=== PATIENT | male | born 1980 | race Asian ===

== ENCOUNTER 2024-12-31 05:04 | Emergency (ER) | payer OTHER, SELFPAY ==
[2024-12-31] VITALS (60 sets, daily range): BP systolic 95–150; BP diastolic 52–86; PULSE 68–92; RESP 12–36; TEMP 36.5; O2SAT 95–99
--- NOTE | 2024-12-31 05:04 | EKG_ITS ---
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
--- NOTE | 2024-12-31 05:05 | ED.GENADULT ---
HPI - General Adult <Nba Arce MD - Last Filed: 12/31/24 16:10> General Chief complaint: Toxicology Problem Stated complaint: Overdose Time Seen by Provider: 12/31/24 05:10 History of Present Illness HPI narrative: 44-year-old male had alleged non accidental ingestion of multiple medications 4:00 a.m. after calling his telling her hat he had taken all of his medications, law enforcement felt patient had no pulse and initiated CPR, for about 30 seconds with subsequent responsiveness of the patient, Narcan intranasal x4 doses given by law enforcement, low blood pressure initially by EMS, given 500 cc bolus during EMS transport, systolic blood pressure 80s increased to 120 on arrival. Speaking and conversant on arrival. From available bottles found at scene. Tylenol rapid release 500 mg tablets, supply 290 tablets, only 1 tablet left in bottle, possible up to 289 tablets. Prazosin 1 mg prescription filled 12/10/2024, 30 tablets, 2 were left, possible ingestion up to 28 tablets, up to 20 tablets less if patient has been taking daily medication. Prazosin 2 mg bottle, 30 tablets supply filled 12/25/2024, 23 tablets left, possible 5 tablet ingestion. Loratadine 10 mg tablets, 365 tablets supply, 3 tablets left. Xyzal 5 mg tablets, 55 tablets supply, 2 tablets left. Lamotrigine 25 mg, filled 12/25/2024, 60 tablets supply, was empty. Also bottle of Bactrim antibiotic was empty, but was Rx from August 2024. Related Data Allergies Allergy/AdvReac Type Severity Reaction Status Date / Time No Known Drug Allergies Allergy Verified 12/31/24 06:00 Exam <Nba Arce MD - Last Filed: 12/31/24 16:10> Narrative Exam Narrative: GENERAL: Well-developed patient, soft but clear speech. HEAD: Atraumatic. Normocephalic. EYES: Pupils equal round and reactive. No scleral icterus. No injection or drainage. ENT: Nose without bleeding, purulent drainage. Throat without erythema, tonsillar hypertrophy or exudate. Airway patent. NECK: Trachea midline. Non tender CARDIOVASCULAR: Regular rate and rhythm without murmurs, gallops, or rubs. RESPIRATORY: Clear to auscultation. Breath sounds equal bilaterally. No wheezes, rales, or rhonchi. GASTROINTESTINAL: Abdomen soft, non-tender, nondistended. EXTREMITIES: No edema or joint tenderness. BACK: Nontender without deformity or crepitance. No flank tenderness. NEURO: AOx3. Motor functions grossly nonfocal. SKIN: No rash or erythema of visible areas Initial Vital Signs Initial Vital Signs: Vital Signs Temperature 97.7 F 12/31/24 05:04 Pulse Rate 82 12/31/24 05:04 Respiratory Rate 22 12/31/24 05:04 Blood Pressure 119/71 12/31/24 05:04 Pulse Oximetry 97 12/31/24 05:04 Oxygen Delivery Method Room Air 12/31/24 05:04 <Nazia Haile MD - Last Filed: 12/31/24 13:27> Initial Vital Signs Initial Vital Signs: Vital Signs Temperature 97.7 F 12/31/24 05:04 Pulse Rate 82 12/31/24 05:04 Respiratory Rate 22 12/31/24 05:04 Blood Pressure 119/71 12/31/24 05:04 Pulse Oximetry 97 12/31/24 05:04 Oxygen Delivery Method Room Air 12/31/24 05:04 Course <Nba Arce MD - Last Filed: 12/31/24 16:10> Orders Ordered: ED Orders 12/31/24 07:58 Acetaminophen Stat CMP [Comprehensive Metabolic Panel] Stat 12/31/24 09:17 Urine Drug Screen, Rapid Stat 12/31/24 11:29 COVID19 -Nasal RAPID Stat Discontinued Medications Sodium Chloride (Normal Saline 0.9%) 1,000 mls @ 1,000 mls/hr IV BOLUS ONE Stop: 12/31/24 06:01 Last Infusion: 12/31/24 06:02 Dose: Infused Documented By: Admin: 12/31/24 05:15 Dose: 1,000 mls/hr Documented By: RODRICK POTASSIUM CHLORIDE IN WATER (Potassium Cl 10 Meq/100 Ml Pina) 10 meq in 100 mls @ 100 mls/hr IV Q1H CHAD Stop: 12/31/24 07:59 Last Infusion: 12/31/24 09:09 Dose: Infused Documented By: Admin: 12/31/24 07:48 Dose: 100 mls/hr Documented By: Infusion: 12/31/24 07:46 Dose: Infused Documented By: Admin: 12/31/24 06:40 Dose: 100 mls/hr Documented By: RODRICK Sodium Chloride (Normal Saline 0.9%) 1,000 mls @ 1,000 mls/hr IV BOLUS ONE Stop: 12/31/24 08:12 Last Infusion: 12/31/24 07:52 Dose: Infused Documented By: Admin: 12/31/24 07:18 Dose: 1,000 mls/hr Documented By: RODRICK Potassium Chloride (Potassium Chloride 20 Meq/15 Ml Udc) 40 meq PO NOW ONE Stop: 12/31/24 05:50 Last Admin: 12/31/24 07:46 Dose: Not Given Documented By: JAROD Vital Signs Vital signs: Vital Signs - 8 hr 12/31/24 08:00 12/31/24 08:00 12/31/24 08:10 Pulse Rate 91 H 75 Respiratory Rate 19 16 Blood Pressure 128/64 Pulse Oximetry 97 96 Oxygen Delivery Method 12/31/24 08:10 12/31/24 08:20 12/31/24 08:20 Pulse Rate 73 Respiratory Rate 19 Blood Pressure 127/57 L 121/57 L Pulse Oximetry 96 Oxygen Delivery Method 12/31/24 08:30 12/31/24 08:30 12/31/24 08:40 Pulse Rate 88 83 Respiratory Rate 21 19 Blood Pressure 119/58 L Pulse Oximetry 97 97 Oxygen Delivery Method 12/31/24 08:40 12/31/24 08:50 12/31/24 08:50 Pulse Rate 80 Respiratory Rate 17 Blood Pressure 122/62 121/64 Pulse Oximetry 97 Oxygen Delivery Method 12/31/24 09:00 12/31/24 09:00 12/31/24 09:10 Pulse Rate 81 78 Respiratory Rate 18 18 Blood Pressure 127/65 Pulse Oximetry 96 97 Oxygen Delivery Method 12/31/24 09:10 12/31/24 09:20 12/31/24 09:20 Pulse Rate 78 Respiratory Rate 21 Blood Pressure 129/69 125/65 Pulse Oximetry 97 Oxygen Delivery Method 12/31/24 09:30 12/31/24 09:30 12/31/24 09:40 Pulse Rate 76 72 Respiratory Rate 20 14 Blood Pressure 128/67 Pulse Oximetry 97 97 Oxygen Delivery Method 12/31/24 09:40 12/31/24 09:50 12/31/24 09:50 Pulse Rate 72 Respiratory Rate 14 Blood Pressure 126/65 119/62 Pulse Oximetry 97 Oxygen Delivery Method 12/31/24 10:00 12/31/24 10:00 12/31/24 10:10 Pulse Rate 71 69 Respiratory Rate 14 12 Blood Pressure 120/65 Pulse Oximetry 97 97 Oxygen Delivery Method 12/31/24 10:10 12/31/24 10:20 12/31/24 10:20 Pulse Rate 79 Respiratory Rate 14 Blood Pressure 116/61 119/67 Pulse Oximetry 97 Oxygen Delivery Method 12/31/24 10:30 12/31/24 10:30 12/31/24 10:40 Pulse Rate 88 Respiratory Rate 15 Blood Pressure 127/67 136/77 Pulse Oximetry 97 Oxygen Delivery Method 12/31/24 10:40 12/31/24 10:50 12/31/24 10:50 Pulse Rate 89 89 Respiratory Rate 15 12 Blood Pressure 126/74 Pulse Oximetry 97 97 Oxygen Delivery Method 12/31/24 11:00 12/31/24 11:00 12/31/24 11:10 Pulse Rate 92 H 88 Respiratory Rate 20 23 Blood Pressure 137/77 Pulse Oximetry 97 97 Oxygen Delivery Method 12/31/24 11:10 12/31/24 11:20 12/31/24 11:20 Pulse Rate 80 Respiratory Rate 17 Blood Pressure 137/79 129/73 Pulse Oximetry 96 Oxygen Delivery Method 12/31/24 11:30 12/31/24 11:30 12/31/24 11:40 Pulse Rate 81 79 Respiratory Rate 21 20 Blood Pressure 122/69 Pulse Oximetry 96 96 Oxygen Delivery Method 12/31/24 11:40 12/31/24 11:50 12/31/24 11:50 Pulse Rate 82 Respiratory Rate 21 Blood Pressure 119/76 133/73 Pulse Oximetry 96 Oxygen Delivery Method 12/31/24 12:00 12/31/24 12:00 12/31/24 12:10 Pulse Rate 85 83 Respiratory Rate 17 16 Blood Pressure 129/73 Pulse Oximetry 97 97 Oxygen Delivery Method 12/31/24 12:10 12/31/24 12:20 12/31/24 12:20 Pulse Rate 81 Respiratory Rate 19 Blood Pressure 133/71 137/73 Pulse Oximetry 97 Oxygen Delivery Method 12/31/24 12:30 12/31/24 12:30 12/31/24 12:40 Pulse Rate 79 Respiratory Rate 16 Blood Pressure 128/70 130/71 Pulse Oximetry 96 Oxygen Delivery Method 12/31/24 12:40 12/31/24 12:50 12/31/24 12:50 Pulse Rate 70 81 Respiratory Rate 15 17 Blood Pressure 121/65 Pulse Oximetry 96 97 Oxygen Delivery Method 12/31/24 13:00 12/31/24 13:00 12/31/24 13:10 Pulse Rate 74 79 Respiratory Rate 16 16 Blood Pressure 113/62 Pulse Oximetry 97 95 Oxygen Delivery Method 12/31/24 13:10 12/31/24 13:20 12/31/24 13:20 Pulse Rate 79 Respiratory Rate 21 Blood Pressure 131/70 127/64 Pulse Oximetry 96 Oxygen Delivery Method 12/31/24 13:30 12/31/24 13:30 12/31/24 13:40 Pulse Rate 77 74 Respiratory Rate 16 18 Blood Pressure 135/76 Pulse Oximetry 97 97 Oxygen Delivery Method 12/31/24 13:40 12/31/24 13:50 12/31/24 13:50 Pulse Rate 82 Respiratory Rate 17 Blood Pressure 138/80 150/83 H Pulse Oximetry 97 Oxygen Delivery Method 12/31/24 14:00 12/31/24 14:00 12/31/24 14:10 Pulse Rate 82 83 Respiratory Rate 19 18 Blood Pressure 128/59 L Pulse Oximetry 98 97 Oxygen Delivery Method 12/31/24 14:10 12/31/24 14:18 Pulse Rate 78 Respiratory Rate 16 Blood Pressure 133/65 122/86 Pulse Oximetry 99 Oxygen Delivery Method Room Air <Nazia Haile MD - Last Filed: 12/31/24 13:27> Orders Ordered: ED Orders 12/31/24 07:58 Acetaminophen Stat CMP [Comprehensive Metabolic Panel] Stat 12/31/24 09:17 Urine Drug Screen, Rapid Stat 12/31/24 11:29 COVID19 -Nasal RAPID Stat Discontinued Medications Sodium Chloride (Normal Saline 0.9%) 1,000 mls @ 1,000 mls/hr IV BOLUS ONE Stop: 12/31/24 06:01 Last Infusion: 12/31/24 06:02 Dose: Infused Documented By: Admin: 12/31/24 05:15 Dose: 1,000 mls/hr Documented By: RODRICK POTASSIUM CHLORIDE IN WATER (Potassium Cl 10 Meq/100 Ml Pina) 10 meq in 100 mls @ 100 mls/hr IV Q1H CHAD Stop: 12/31/24 07:59 Last Infusion: 12/31/24 09:09 Dose: Infused Documented By: Admin: 12/31/24 07:48 Dose: 100 mls/hr Documented By: Infusion: 12/31/24 07:46 Dose: Infused Documented By: Admin: 12/31/24 06:40 Dose: 100 mls/hr Documented By: RODRICK Sodium Chloride (Normal Saline 0.9%) 1,000 mls @ 1,000 mls/hr IV BOLUS ONE Stop: 12/31/24 08:12 Last Infusion: 12/31/24 07:52 Dose: Infused Documented By: Admin: 12/31/24 07:18 Dose: 1,000 mls/hr Documented By: RODRICK Potassium Chloride (Potassium Chloride 20 Meq/15 Ml Udc) 40 meq PO NOW ONE Stop: 12/31/24 05:50 Last Admin: 12/31/24 07:46 Dose: Not Given Documented By: JAROD Vital Signs Vital signs: Vital Signs - 8 hr 12/31/24 08:00 12/31/24 08:00 12/31/24 08:10 Pulse Rate 91 H 75 Respiratory Rate 19 16 Blood Pressure 128/64 Pulse Oximetry 97 96 Oxygen Delivery Method 12/31/24 08:10 12/31/24 08:20 12/31/24 08:20 Pulse Rate 73 Respiratory Rate 19 Blood Pressure 127/57 L 121/57 L Pulse Oximetry 96 Oxygen Delivery Method 12/31/24 08:30 12/31/24 08:30 12/31/24 08:40 Pulse Rate 88 83 Respiratory Rate 21 19 Blood Pressure 119/58 L Pulse Oximetry 97 97 Oxygen Delivery Method 12/31/24 08:40 12/31/24 08:50 12/31/24 08:50 Pulse Rate 80 Respiratory Rate 17 Blood Pressure 122/62 121/64 Pulse Oximetry 97 Oxygen Delivery Method 12/31/24 09:00 12/31/24 09:00 12/31/24 09:10 Pulse Rate 81 78 Respiratory Rate 18 18 Blood Pressure 127/65 Pulse Oximetry 96 97 Oxygen Delivery Method 12/31/24 09:10 12/31/24 09:20 12/31/24 09:20 Pulse Rate 78 Respiratory Rate 21 Blood Pressure 129/69 125/65 Pulse Oximetry 97 Oxygen Delivery Method 12/31/24 09:30 12/31/24 09:30 12/31/24 09:40 Pulse Rate 76 72 Respiratory Rate 20 14 Blood Pressure 128/67 Pulse Oximetry 97 97 Oxygen Delivery Method 12/31/24 09:40 12/31/24 09:50 12/31/24 09:50 Pulse Rate 72 Respiratory Rate 14 Blood Pressure 126/65 119/62 Pulse Oximetry 97 Oxygen Delivery Method 12/31/24 10:00 12/31/24 10:00 12/31/24 10:10 Pulse Rate 71 69 Respiratory Rate 14 12 Blood Pressure 120/65 Pulse Oximetry 97 97 Oxygen Delivery Method 12/31/24 10:10 12/31/24 10:20 12/31/24 10:20 Pulse Rate 79 Respiratory Rate 14 Blood Pressure 116/61 119/67 Pulse Oximetry 97 Oxygen Delivery Method 12/31/24 10:30 12/31/24 10:30 12/31/24 10:40 Pulse Rate 88 Respiratory Rate 15 Blood Pressure 127/67 136/77 Pulse Oximetry 97 Oxygen Delivery Method 12/31/24 10:40 12/31/24 10:50 12/31/24 10:50 Pulse Rate 89 89 Respiratory Rate 15 12 Blood Pressure 126/74 Pulse Oximetry 97 97 Oxygen Delivery Method 12/31/24 11:00 12/31/24 11:00 12/31/24 11:10 Pulse Rate 92 H 88 Respiratory Rate 20 23 Blood Pressure 137/77 Pulse Oximetry 97 97 Oxygen Delivery Method 12/31/24 11:10 12/31/24 11:20 12/31/24 11:20 Pulse Rate 80 Respiratory Rate 17 Blood Pressure 137/79 129/73 Pulse Oximetry 96 Oxygen Delivery Method 12/31/24 11:30 12/31/24 11:30 12/31/24 11:40 Pulse Rate 81 79 Respiratory Rate 21 20 Blood Pressure 122/69 Pulse Oximetry 96 96 Oxygen Delivery Method 12/31/24 11:40 12/31/24 11:50 12/31/24 11:50 Pulse Rate 82 Respiratory Rate 21 Blood Pressure 119/76 133/73 Pulse Oximetry 96 Oxygen Delivery Method 12/31/24 12:00 12/31/24 12:00 12/31/24 12:10 Pulse Rate 85 83 Respiratory Rate 17 16 Blood Pressure 129/73 Pulse Oximetry 97 97 Oxygen Delivery Method 12/31/24 12:10 12/31/24 12:20 12/31/24 12:20 Pulse Rate 81 Respiratory Rate 19 Blood Pressure 133/71 137/73 Pulse Oximetry 97 Oxygen Delivery Method 12/31/24 12:30 12/31/24 12:30 12/31/24 12:40 Pulse Rate 79 Respiratory Rate 16 Blood Pressure 128/70 130/71 Pulse Oximetry 96 Oxygen Delivery Method 12/31/24 12:40 12/31/24 12:50 12/31/24 12:50 Pulse Rate 70 81 Respiratory Rate 15 17 Blood Pressure 121/65 Pulse Oximetry 96 97 Oxygen Delivery Method 12/31/24 13:00 12/31/24 13:00 12/31/24 13:10 Pulse Rate 74 79 Respiratory Rate 16 16 Blood Pressure 113/62 Pulse Oximetry 97 95 Oxygen Delivery Method 12/31/24 13:10 12/31/24 13:20 12/31/24 13:20 Pulse Rate 79 Respiratory Rate 21 Blood Pressure 131/70 127/64 Pulse Oximetry 96 Oxygen Delivery Method 12/31/24 13:30 12/31/24 13:30 12/31/24 13:40 Pulse Rate 77 74 Respiratory Rate 16 18 Blood Pressure 135/76 Pulse Oximetry 97 97 Oxygen Delivery Method 12/31/24 13:40 12/31/24 13:50 12/31/24 13:50 Pulse Rate 82 Respiratory Rate 17 Blood Pressure 138/80 150/83 H Pulse Oximetry 97 Oxygen Delivery Method 12/31/24 14:00 12/31/24 14:00 12/31/24 14:10 Pulse Rate 82 83 Respiratory Rate 19 18 Blood Pressure 128/59 L Pulse Oximetry 98 97 Oxygen Delivery Method 12/31/24 14:10 12/31/24 14:18 Pulse Rate 78 Respiratory Rate 16 Blood Pressure 133/65 122/86 Pulse Oximetry 99 Oxygen Delivery Method Room Air Medical Decision Making <Nba Arce MD - Last Filed: 12/31/24 16:10> Lab Data Lab results reviewed: Yes I reviewed the patient's lab results. Lab results narrative: POC glucose 120. White blood cell count 6000, hemoglobin 13.6, platelets 240,000. Glucose 121. Normal renal function. Calcium 8.3 slight decreased, normal albumin. Serum CO2 21 with chloride 105, sodium 138, anion gap 12. Serum potassium 3.1 low. Liver functions normal. Lactate 2.0 noted. Acetaminophen measurable 27. Salicylate negative. Ethanol negative. 12/31/24 05:19 12/31/24 07:58 Labs: Lab Results 12/31/24 12/31/24 12/31/24 Range/Units 05:19 05:23 05:26 WBC 6.0 (4.5-11.0) X10^3/uL RBC 4.55 (4.5-5.9) X10^6/uL Hgb 13.6 (13.5-17.5) g/dL Hct 39.2 L (41-53) % MCV 86.1 (80-100) fL MCH 30.0 (26-34) PG MCHC 34.8 (30-36) % RDW 14.4 (11.6-14.8) % Plt Count 240 (150-400) X10^3/uL Neut % (Auto) 48.1 L (50-75) % Lymph % (Auto) 39.3 (25-40) % [place] % (Auto) 8.7 (3-14) % Eos % (Auto) 2.7 (2-4) % Baso % (Auto) 1.2 (0-2) % Neut # (Auto) 2900 (1051-1317) /uL Lymph # (Auto) 2300 (4358-4343) /uL [place] # (Auto) 500 (0-900) /uL Eos # (Auto) 200 (0-450) /uL Baso # (Auto) 100 (0-100) /uL PT 11.1 (9.4-12.5) SECONDS INR 1.0 (0.9-1.3) ABG Sample Site Right radial ABG pH Not Reportable ABG pCO2 Not Reportable ABG pO2 Not Reportable ABG HCO3 Not Reportable ABG Total CO2 Not Reportable ABG O2 Saturation Not Reportable ABG Base Excess Not Reportable Ermias Test Positive Sodium 138 (137-145) mmol/L Potassium 3.1 L (3.4-5.1) mmol/L Chloride 105 (98-107) mmol/L Carbon Dioxide 21 L (22-32) mmol/L BUN 14 (9-20) mg/dL Creatinine 0.64 L (0.66-1.25) mg/dL Estimated GFR > 60 (>60) mL/min BUN/Creatinine Ratio 21.9 (6-22) Glucose 121 H (70-99) mg/dL POC Whole Bld Glucose 120 H (70-99) mg/dL Lactate 2.0 (0.7-2.1) mmol/L Calcium 8.3 L (8.4-10.2) mg/dL Total Bilirubin 0.4 (0.2-1.3) mg/dL Conjugated Bilirubin 0.0 (0.0-0.3) md/dL Unconjugated Bilirubin 0.1 (0.0-1.1) mg/dL AST 25 (17-59) IU/L ALT 21 (<50) IU/L Alkaline Phosphatase 84 (38-126) U/L Total Protein 7.1 (6.3-8.2) g/dL Albumin 4.1 (3.5-5.0) g/dL Globulin 3.0 (1.7-4.1) g/dL Albumin/Globulin Ratio 1.4 (1.0-2.8) Salicylates < 1.0 (<20) mg/dL U Opiates 300ng/mL cut (Negative) Ur Oxycodone Screen (Negative) Urine Methadone Screen (Negative) Acetaminophen 27 (10-30) ug/mL Ur Barbiturates Screen (Negative) U Tricyclic Antidepress (Negative) Ur Phencyclidine Scrn (Negative) Ur Amphetamines Screen (Negative) U Methamphetamines Scrn (Negative) Ur MDMA Scrn (Ecstasy) (Negative) U Benzodiazepines Scrn (Negative) Urine Cocaine Screen (Negative) U Marijuana (THC) Screen (Negative) Urine pH (Normal) Urine Specific [place] (Normal) Ethyl Alcohol < 10 (<10) mg/dL Ur Creatinine (Normal) SARS-CoV-2 (PCR) (Negative) 12/31/24 12/31/24 12/31/24 Range/Units 05:31 07:58 09:17 WBC (4.5-11.0) X10^3/uL RBC (4.5-5.9) X10^6/uL Hgb (13.5-17.5) g/dL Hct (41-53) % MCV (80-100) fL MCH (26-34) PG MCHC (30-36) % RDW (11.6-14.8) % Plt Count (150-400) X10^3/uL Neut % (Auto) (50-75) % Lymph % (Auto) (25-40) % [place] % (Auto) (3-14) % Eos % (Auto) (2-4) % Baso % (Auto) (0-2) % Neut # (Auto) (1632-8674) /uL Lymph # (Auto) (7437-1825) /uL [place] # (Auto) (0-900) /uL Eos # (Auto) (0-450) /uL Baso # (Auto) (0-100) /uL PT (9.4-12.5) SECONDS INR (0.9-1.3) ABG Sample Site Not Reportable ABG pH 7.39 ABG pCO2 39.5 ABG pO2 86 ABG HCO3 24 ABG Total CO2 23 ABG O2 Saturation 97 ABG Base Excess -0.7 Ermias Test Not Reportable Sodium 137 (137-145) mmol/L Potassium 3.9 (3.4-5.1) mmol/L Chloride 107 (98-107) mmol/L Carbon Dioxide 20 L (22-32) mmol/L BUN 12 (9-20) mg/dL Creatinine 0.61 L (0.66-1.25) mg/dL Estimated GFR > 60 (>60) mL/min BUN/Creatinine Ratio 19.7 (6-22) Glucose 120 H (70-99) mg/dL POC Whole Bld Glucose (70-99) mg/dL Lactate (0.7-2.1) mmol/L Calcium 7.9 L (8.4-10.2) mg/dL Total Bilirubin 0.6 (0.2-1.3) mg/dL Conjugated Bilirubin (0.0-0.3) md/dL Unconjugated Bilirubin (0.0-1.1) mg/dL AST 30 (17-59) IU/L ALT 21 (<50) IU/L Alkaline Phosphatase 95 (38-126) U/L Total Protein 7.0 (6.3-8.2) g/dL Albumin 4.0 (3.5-5.0) g/dL Globulin 3.0 (1.7-4.1) g/dL Albumin/Globulin Ratio 1.3 (1.0-2.8) Salicylates (<20) mg/dL U Opiates 300ng/mL cut Negative (Negative) Ur Oxycodone Screen Negative (Negative) Urine Methadone Screen Negative (Negative) Acetaminophen 14 (10-30) ug/mL Ur Barbiturates Screen Negative (Negative) U Tricyclic Antidepress Negative (Negative) Ur Phencyclidine Scrn Negative (Negative) Ur Amphetamines Screen Negative (Negative) U Methamphetamines Scrn Negative (Negative) Ur MDMA Scrn (Ecstasy) Negative (Negative) U Benzodiazepines Scrn Negative (Negative) Urine Cocaine Screen Negative (Negative) U Marijuana (THC) Screen Negative (Negative) Urine pH Normal (Normal) Urine Specific [place] Normal (Normal) Ethyl Alcohol (<10) mg/dL Ur Creatinine Normal (Normal) SARS-CoV-2 (PCR) (Negative) 12/31/24 Range/Units 11:29 WBC (4.5-11.0) X10^3/uL RBC (4.5-5.9) X10^6/uL Hgb (13.5-17.5) g/dL Hct (41-53) % MCV (80-100) fL MCH (26-34) PG MCHC (30-36) % RDW (11.6-14.8) % Plt Count (150-400) X10^3/uL Neut % (Auto) (50-75) % Lymph % (Auto) (25-40) % [place] % (Auto) (3-14) % Eos % (Auto) (2-4) % Baso % (Auto) (0-2) % Neut # (Auto) (0695-4403) /uL Lymph # (Auto) (3961-0029) /uL [place] # (Auto) (0-900) /uL Eos # (Auto) (0-450) /uL Baso # (Auto) (0-100) /uL PT (9.4-12.5) SECONDS INR (0.9-1.3) ABG Sample Site ABG pH ABG pCO2 ABG pO2 ABG HCO3 ABG Total CO2 ABG O2 Saturation ABG Base Excess Ermias Test Sodium (137-145) mmol/L Potassium (3.4-5.1) mmol/L Chloride (98-107) mmol/L Carbon Dioxide (22-32) mmol/L BUN (9-20) mg/dL Creatinine (0.66-1.25) mg/dL Estimated GFR (>60) mL/min BUN/Creatinine Ratio (6-22) Glucose (70-99) mg/dL POC Whole Bld Glucose (70-99) mg/dL Lactate (0.7-2.1) mmol/L Calcium (8.4-10.2) mg/dL Total Bilirubin (0.2-1.3) mg/dL Conjugated Bilirubin (0.0-0.3) md/dL Unconjugated Bilirubin (0.0-1.1) mg/dL AST (17-59) IU/L ALT (<50) IU/L Alkaline Phosphatase (38-126) U/L Total Protein (6.3-8.2) g/dL Albumin (3.5-5.0) g/dL Globulin (1.7-4.1) g/dL Albumin/Globulin Ratio (1.0-2.8) Salicylates (<20) mg/dL U Opiates 300ng/mL cut (Negative) Ur Oxycodone Screen (Negative) Urine Methadone Screen (Negative) Acetaminophen (10-30) ug/mL Ur Barbiturates Screen (Negative) U Tricyclic Antidepress (Negative) Ur Phencyclidine Scrn (Negative) Ur Amphetamines Screen (Negative) U Methamphetamines Scrn (Negative) Ur MDMA Scrn (Ecstasy) (Negative) U Benzodiazepines Scrn (Negative) Urine Cocaine Screen (Negative) U Marijuana (THC) Screen (Negative) Urine pH (Normal) Urine Specific [place] (Normal) Ethyl Alcohol (<10) mg/dL Ur Creatinine (Normal) SARS-CoV-2 (PCR) Negative (Negative) Point of Care Testing Glucose POC 120 Point of care testing: Point of Care Testing Glucose POC 120 ECG Data Interpretation: 0525, normal sinus rhythm with rate of 84, no obvious ST segment elevation or depression changes. W[place] 202, QRS 86, QTC 439. MDM Narrative Medical decision making narrative: 44-year-old male with polysubstance non accidental ingestion possibly at 0400. Possible substances include Tylenol rapid release, prazosin, loratadine, Xyzal, lamotrigine, seems less likely old supply empty bottle Bactrim antibiotic.. Decreased responsiveness reported prior to arrival, given intranasal Narcan by law enforcement, who could not feel a pulse and reportedly performed 30 minutes of chest compressions, alert for EMS who gave IV fluids EN route for low blood pressure, systolic blood pressure 80s improved to 120 on arrival. Patient is conversant. Baseline EKG shows sinus rhythm, normal QRS and QTc ABG on room air shows pH 7.39, pCO2 39.5, PaO2 86, bicarb 23, 97% saturation, BE -0.7 0530, Poison control consulted, observe for 6-8 hours, we will repeat acetaminophen level at 8:00 a.m. which should be 4 hours from alleged time of ingestion, acetaminophen level from arrival still pending. Monitor 6-8 hours. Watch for MANAGER OF [employer] depression, seizures, QRS widening, tachycardia. Initial lab data: POC glucose 120. White blood cell count 6000, hemoglobin 13.6, platelets 240,000. Glucose 121. Normal renal function. Calcium 8.3 slight decreased, normal albumin. Serum CO2 21 with chloride 105, sodium 138, anion gap 12. Serum potassium 3.1 low. Liver functions normal. Lactate 2.0 noted. Acetaminophen measurable 27. Salicylate negative. Ethanol negative. K 3.1 low, IV/PO potassium. 0600, conversant, systolic blood pressure 114, heart rate 70s. Maintaining airway thus far. 0700, repeat acetaminophen and EKG to be done in the next hour, signed out to [facility] ED shift physician Dr Haile. 7am care assumed, patient independently examined, chart reviewed 725 BP trending down, total 1L NS given, repeat. 2nd IV started Second Tylenol dose is trending down, blood pressure is responding nicely to fluids If current clinical trend continues will recommend 6 hour observation from time of ingestion, this would be 10:00 a.m., as appropriate time to presume he is medically clear. Patient is updated. 10am medically clear 11am discussion with CREDIT RATING CHECKER 1120 CREDIT RATING CHECKER, multiple issues, stressors, anxiety re work, marriage and we will clearly benefit from inpatient care and is a good michaela voluntary admission. We will begin looking for inpatient beds. Patient drove from [facility] to [facility] to ?see one last [place] He is extraordinarily high-risk for repeat suicide attempt, if at any point he became involuntary he would need to be detained. 125 [facility]. Transport scheduled for 2pm. Pt is aware and agreeable. <Nazia Haile MD - Last Filed: 12/31/24 13:27> Lab Data Labs: Lab Results 12/31/24 12/31/24 12/31/24 Range/Units 05:19 05:23 05:26 WBC 6.0 (4.5-11.0) X10^3/uL RBC 4.55 (4.5-5.9) X10^6/uL Hgb 13.6 (13.5-17.5) g/dL Hct 39.2 L (41-53) % MCV 86.1 (80-100) fL MCH 30.0 (26-34) PG MCHC 34.8 (30-36) % RDW 14.4 (11.6-14.8) % Plt Count 240 (150-400) X10^3/uL Neut % (Auto) 48.1 L (50-75) % Lymph % (Auto) 39.3 (25-40) % [place] % (Auto) 8.7 (3-14) % Eos % (Auto) 2.7 (2-4) % Baso % (Auto) 1.2 (0-2) % Neut # (Auto) 2900 (5016-0659) /uL Lymph # (Auto) 2300 (9791-1057) /uL [place] # (Auto) 500 (0-900) /uL Eos # (Auto) 200 (0-450) /uL Baso # (Auto) 100 (0-100) /uL PT 11.1 (9.4-12.5) SECONDS INR 1.0 (0.9-1.3) ABG Sample Site Right radial ABG pH Not Reportable ABG pCO2 Not Reportable ABG pO2 Not Reportable ABG HCO3 Not Reportable ABG Total CO2 Not Reportable ABG O2 Saturation Not Reportable ABG Base Excess Not Reportable Ermias Test Positive Sodium 138 (137-145) mmol/L Potassium 3.1 L (3.4-5.1) mmol/L Chloride 105 (98-107) mmol/L Carbon Dioxide 21 L (22-32) mmol/L BUN 14 (9-20) mg/dL Creatinine 0.64 L (0.66-1.25) mg/dL Estimated GFR > 60 (>60) mL/min BUN/Creatinine Ratio 21.9 (6-22) Glucose 121 H (70-99) mg/dL POC Whole Bld Glucose 120 H (70-99) mg/dL Lactate 2.0 (0.7-2.1) mmol/L Calcium 8.3 L (8.4-10.2) mg/dL Total Bilirubin 0.4 (0.2-1.3) mg/dL Conjugated Bilirubin 0.0 (0.0-0.3) md/dL Unconjugated Bilirubin 0.1 (0.0-1.1) mg/dL AST 25 (17-59) IU/L ALT 21 (<50) IU/L Alkaline Phosphatase 84 (38-126) U/L Total Protein 7.1 (6.3-8.2) g/dL Albumin 4.1 (3.5-5.0) g/dL Globulin 3.0 (1.7-4.1) g/dL Albumin/Globulin Ratio 1.4 (1.0-2.8) Salicylates < 1.0 (<20) mg/dL U Opiates 300ng/mL cut (Negative) Ur Oxycodone Screen (Negative) Urine Methadone Screen (Negative) Acetaminophen 27 (10-30) ug/mL Ur Barbiturates Screen (Negative) U Tricyclic Antidepress (Negative) Ur Phencyclidine Scrn (Negative) Ur Amphetamines Screen (Negative) U Methamphetamines Scrn (Negative) Ur MDMA Scrn (Ecstasy) (Negative) U Benzodiazepines Scrn (Negative) Urine Cocaine Screen (Negative) U Marijuana (THC) Screen (Negative) Urine pH (Normal) Urine Specific [place] (Normal) Ethyl Alcohol < 10 (<10) mg/dL Ur Creatinine (Normal) SARS-CoV-2 (PCR) (Negative) 12/31/24 12/31/24 12/31/24 Range/Units 05:31 07:58 09:17 WBC (4.5-11.0) X10^3/uL RBC (4.5-5.9) X10^6/uL Hgb (13.5-17.5) g/dL Hct (41-53) % MCV (80-100) fL MCH (26-34) PG MCHC (30-36) % RDW (11.6-14.8) % Plt Count (150-400) X10^3/uL Neut % (Auto) (50-75) % Lymph % (Auto) (25-40) % [place] % (Auto) (3-14) % Eos % (Auto) (2-4) % Baso % (Auto) (0-2) % Neut # (Auto) (7756-4159) /uL Lymph # (Auto) (9246-4779) /uL [place] # (Auto) (0-900) /uL Eos # (Auto) (0-450) /uL Baso # (Auto) (0-100) /uL PT (9.4-12.5) SECONDS INR (0.9-1.3) ABG Sample Site Not Reportable ABG pH 7.39 ABG pCO2 39.5 ABG pO2 86 ABG HCO3 24 ABG Total CO2 23 ABG O2 Saturation 97 ABG Base Excess -0.7 Ermias Test Not Reportable Sodium 137 (137-145) mmol/L Potassium 3.9 (3.4-5.1) mmol/L Chloride 107 (98-107) mmol/L Carbon Dioxide 20 L (22-32) mmol/L BUN 12 (9-20) mg/dL Creatinine 0.61 L (0.66-1.25) mg/dL Estimated GFR > 60 (>60) mL/min BUN/Creatinine Ratio 19.7 (6-22) Glucose 120 H (70-99) mg/dL POC Whole Bld Glucose (70-99) mg/dL Lactate (0.7-2.1) mmol/L Calcium 7.9 L (8.4-10.2) mg/dL Total Bilirubin 0.6 (0.2-1.3) mg/dL Conjugated Bilirubin (0.0-0.3) md/dL Unconjugated Bilirubin (0.0-1.1) mg/dL AST 30 (17-59) IU/L ALT 21 (<50) IU/L Alkaline Phosphatase 95 (38-126) U/L Total Protein 7.0 (6.3-8.2) g/dL Albumin 4.0 (3.5-5.0) g/dL Globulin 3.0 (1.7-4.1) g/dL Albumin/Globulin Ratio 1.3 (1.0-2.8) Salicylates (<20) mg/dL U Opiates 300ng/mL cut Negative (Negative) Ur Oxycodone Screen Negative (Negative) Urine Methadone Screen Negative (Negative) Acetaminophen 14 (10-30) ug/mL Ur Barbiturates Screen Negative (Negative) U Tricyclic Antidepress Negative (Negative) Ur Phencyclidine Scrn Negative (Negative) Ur Amphetamines Screen Negative (Negative) U Methamphetamines Scrn Negative (Negative) Ur MDMA Scrn (Ecstasy) Negative (Negative) U Benzodiazepines Scrn Negative (Negative) Urine Cocaine Screen Negative (Negative) U Marijuana (THC) Screen Negative (Negative) Urine pH Normal (Normal) Urine Specific [place] Normal (Normal) Ethyl Alcohol (<10) mg/dL Ur Creatinine Normal (Normal) SARS-CoV-2 (PCR) (Negative) 12/31/24 Range/Units 11:29 WBC (4.5-11.0) X10^3/uL RBC (4.5-5.9) X10^6/uL Hgb (13.5-17.5) g/dL Hct (41-53) % MCV (80-100) fL MCH (26-34) PG MCHC (30-36) % RDW (11.6-14.8) % Plt Count (150-400) X10^3/uL Neut % (Auto) (50-75) % Lymph % (Auto) (25-40) % [place] % (Auto) (3-14) % Eos % (Auto) (2-4) % Baso % (Auto) (0-2) % Neut # (Auto) (5172-1011) /uL Lymph # (Auto) (8026-7545) /uL [place] # (Auto) (0-900) /uL Eos # (Auto) (0-450) /uL Baso # (Auto) (0-100) /uL PT (9.4-12.5) SECONDS INR (0.9-1.3) ABG Sample Site ABG pH ABG pCO2 ABG pO2 ABG HCO3 ABG Total CO2 ABG O2 Saturation ABG Base Excess Ermias Test Sodium (137-145) mmol/L Potassium (3.4-5.1) mmol/L Chloride (98-107) mmol/L Carbon Dioxide (22-32) mmol/L BUN (9-20) mg/dL Creatinine (0.66-1.25) mg/dL Estimated GFR (>60) mL/min BUN/Creatinine Ratio (6-22) Glucose (70-99) mg/dL POC Whole Bld Glucose (70-99) mg/dL Lactate (0.7-2.1) mmol/L Calcium (8.4-10.2) mg/dL Total Bilirubin (0.2-1.3) mg/dL Conjugated Bilirubin (0.0-0.3) md/dL Unconjugated Bilirubin (0.0-1.1) mg/dL AST (17-59) IU/L ALT (<50) IU/L Alkaline Phosphatase (38-126) U/L Total Protein (6.3-8.2) g/dL Albumin (3.5-5.0) g/dL Globulin (1.7-4.1) g/dL Albumin/Globulin Ratio (1.0-2.8) Salicylates (<20) mg/dL U Opiates 300ng/mL cut (Negative) Ur Oxycodone Screen (Negative) Urine Methadone Screen (Negative) Acetaminophen (10-30) ug/mL Ur Barbiturates Screen (Negative) U Tricyclic Antidepress (Negative) Ur Phencyclidine Scrn (Negative) Ur Amphetamines Screen (Negative) U Methamphetamines Scrn (Negative) Ur MDMA Scrn (Ecstasy) (Negative) U Benzodiazepines Scrn (Negative) Urine Cocaine Screen (Negative) U Marijuana (THC) Screen (Negative) Urine pH (Normal) Urine Specific [place] (Normal) Ethyl Alcohol (<10) mg/dL Ur Creatinine (Normal) SARS-CoV-2 (PCR) Negative (Negative) Point of Care Testing Glucose POC 120 Point of care testing: Point of Care Testing Glucose POC 120 MDM Narrative Medical decision making narrative: 44-year-old male with polysubstance non accidental ingestion possibly at 0400. Possible substances include Tylenol rapid release, prazosin, loratadine, Xyzal, lamotrigine, seems less likely old supply empty bottle Bactrim antibiotic.. Decreased responsiveness reported prior to arrival, given intranasal Narcan by law enforcement, who could not feel a pulse and reportedly performed 30 minutes of chest compressions, alert for EMS who gave IV fluids EN route for low blood pressure, systolic blood pressure 80s improved to 120 on arrival. Patient is conversant. Baseline EKG shows sinus rhythm, normal QRS and QTc ABG on room air shows pH 7.39, pCO2 39.5, PaO2 86, bicarb 23, 97% saturation, BE -0.7 0530, Poison control consulted, observe for 6-8 hours, we will repeat acetaminophen level at 8:00 a.m. which should be 4 hours from alleged time of ingestion, acetaminophen level from arrival still pending. Monitor 6-8 hours. Watch for MANAGER OF HEALTH depression, seizures, QRS widening, tachycardia. Initial lab data: POC glucose 120. White blood cell count 6000, hemoglobin 13.6, platelets 240,000. Glucose 121. Normal renal function. Calcium 8.3 slight decreased, normal albumin. Serum CO2 21 with chloride 105, sodium 138, anion gap 12. Serum potassium 3.1 low. Liver functions normal. Lactate 2.0 noted. Acetaminophen measurable 27. Salicylate negative. Ethanol negative. 0600, conversant, systolic blood pressure 114, heart rate 70s. Maintaining airway thus far. 0700, repeat acetaminophen and EKG to be done in the next hour, [facility] Dr Haile. 7am care assumed, patient independently examined, chart reviewed 725 BP trending down, total 1L NS given, repeat. 2nd IV started Second Tylenol dose is trending down, blood pressure is responding nicely to fluids If current clinical trend continues will recommend 6 hour observation from time of ingestion, this would be 10:00 a.m., as appropriate time to presume he is medically clear. Patient is updated. 10am medically clear 11am discussion with CREDIT RATING CHECKER 1120 CREDIT RATING CHECKER, multiple issues, stressors, anxiety re work, marriage and we will clearly benefit from inpatient care and is a good michaela voluntary admission. We will begin looking for inpatient beds. Patient drove from [facility] to [facility] [place] ?[place] one last [place] He is extraordinarily high-risk for repeat suicide attempt, if at any point he became involuntary he would need to be detained. 125 [facility]. Transport scheduled for 2pm. Pt is aware and agreeable. Discharge Plan Departure Patient Disposition: Xfer Psychiatric Hosp Clinical Impression: Suicidal ideation, Suicide attempt by drug ingestion, Depression
[2024-12-31] MEDS: SODIUM CHLORIDE 0.9% 1,000 ML 1000 ML IV ×2 (05:15→07:18)
[2024-12-31 05:29] LABS: Allen Test for ABG Passed? Positive; Blood Gas Collection Site Right Radial
[2024-12-31 05:29] LABS: Add Manual Diff / Slide Review NO; Hematocrit 39.2 % (41-53); Hemoglobin 13.6 g/dL (13.5-17.5); Lymphocytes Absolute Auto 2300 /uL (1100-4500); Mean Corpuscular HGB Conc 34.8 % (30-36); Mean Corpuscular Hemoglobin 30.0 PG (26-34); Mean Corpuscular Volume 86.1 fL (80-100); Platelet Count 240 X10^3/uL (150-400)
[2024-12-31 05:36] LABS: HCO3 ABG 24 mmol/L (23-27); Oxygen Saturation ABG 97 % (95-100); PCO2 ABG 39.5 mmHg (35-45); PO2 ABG 86 mmHg (80-100); TCO2 ABG 23 mmol/L (23-27)
--- NOTE | 2024-12-31 05:36 | PC.NURSE ---
Talked to Dalia at poison control states to check tylenol levels. states prazosin can cause reflex tachycardia and hypotension and to treat with fluids and pressors. Lamotrigine can cause electric welder depression, seizures and qrs prolongations. states the allergy meds can cause upset stomach
[2024-12-31 05:45] LABS: Acetaminophen 27 ug/mL (10-30); Alanine Aminotransferase 21 IU/L (<50); Albumin 4.1 g/dL (3.5-5.0); Albumin Globulin Ratio 1.4 (1.0-2.8); Alkaline Phosphatase 84 U/L (38-126); Blood Urea Nitrogen 14 mg/dL (9-20); Calcium 8.3 mg/dL (8.4-10.2); Carbon Dioxide 21 mmol/L (22-32); Chloride 105 mmol/L (98-107); Estimated Glomerular Filt Rate > 60 mL/min (>60); Ethanol (ETOH) < 10 mg/dL (<10); Globulin 3.0 g/dL (1.7-4.1); Glucose 121 mg/dL (70-99); HEMOLYSIS 16 (0-50); Lactate (Lactic Acid) 2.0 mmol/L (0.7-2.1); Potassium 3.1 mmol/L (3.4-5.1); Salicylate < 1.0 mg/dL (<20); Sodium 138 mmol/L (137-145); Total Protein 7.1 g/dL (6.3-8.2)
[2024-12-31 05:49] LABS: INR 1.0 (0.9-1.3); Prothrombin Time 11.1 SECONDS (9.4-12.5)
--- NOTE | 2024-12-31 05:50 | EKG_ITS ---
[facility] [address], [place] [address] Test Date: 2024-12-31 Pat Name: Raymond Moore Department: [facility] Room: Gender: Male Holter Technician: : 1980 Requested By: Order Number: [id number] Reading MD: Ermias Rust Measurements Intervals [place] Rate: 84 P: 53 TX: 188 QRS: 57 QRSD: 80 T: 27 QT: 362 QTc: 427 Interpretive Statements Normal sinus rhythm Electronically Signed On 01-03-2025 9:20:35 PDT by Ermias Rust
[2024-12-31] MEDS: POTASSIUM CHLORIDE IN WATER 10 MEQ/100 ML PIGGYBACK 100 MEQ IV ×2 (06:40→07:48)
--- NOTE | 2024-12-31 07:30 | PC.NURSE ---
Pt AxOx4 at this time, arousable to verbal stimulus. Pt is very drowsy, mumbling responses but is aware of what is going on and is able to follow commands well. VS stable, respirations regular and unlabored.
--- NOTE | 2024-12-31 07:34 | PC.NURSE ---
pt was incontinent and a bed change was done @0725.
[2024-12-31 08:21] LABS: Acetaminophen 14 ug/mL (10-30)
[2024-12-31 08:22] LABS: Alanine Aminotransferase 21 IU/L (<50); Albumin 4.0 g/dL (3.5-5.0); Albumin Globulin Ratio 1.3 (1.0-2.8); Alkaline Phosphatase 95 U/L (38-126); Blood Urea Nitrogen 12 mg/dL (9-20); Calcium 7.9 mg/dL (8.4-10.2); Carbon Dioxide 20 mmol/L (22-32); Chloride 107 mmol/L (98-107); Estimated Glomerular Filt Rate > 60 mL/min (>60); Globulin 3.0 g/dL (1.7-4.1); Glucose 120 mg/dL (70-99); HEMOLYSIS < 15 (0-50); Potassium 3.9 mmol/L (3.4-5.1); Sodium 137 mmol/L (137-145); Total Protein 7.0 g/dL (6.3-8.2)
[2024-12-31 09:32] LABS: UR Morphine/Opiate cutoff 300 Negative (Negative); Ur Specific Gravity Normal (Normal); Urine MDMA Negative (Negative); Urine Methamphetamines Negative (Negative); Urine Tetrahydrocannabinol Negative (Negative); Urine Tricyclic Antidepressant Negative (Negative)
--- NOTE | 2024-12-31 12:00 | CM.SWNOTE ---
ED BACK OFFICE MEDICAL ASSISTANT Assessment BACK OFFICE MEDICAL ASSISTANT/Head Swamper Assessment Start date 12/31/24 Visit Start Time 10:10 End date 12/31/24 Visit End Time 11:20 Total time Care 1 hour 20 minutes Management spent on patient visit-in minutes Presenting Problem Patient presents to ED via EMS after intentional overdose of several medications in attempt to kill self early this morning. Patient drove from his home in [facility] to one of his favorite places at [place] to see one last sunset. Patient's former called 911 out of concern for patient. Patient was found unresponsive and required 4 doses of narcan. Precipitating Event( Patient endorses several life stressors regarding his s) marriage, work life, cultural expectations as an man and not sharing these stressors with anyone. Patient discusses in great detail how these stressors have compounded over the years and more intensely in that last year. Patient states he has been experiencing suicidal ideation in the last few months. 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 Patient endorses issues of sexual disfunction which has impacted his marriage. Patient states he was unable to communicate his stressors with his and endorses that his marriage of 13 years recently ended in divorce. Patient states that he gave up custody of his son out of fear that he could not be a good enough father. Patient endorses feelings of isolation and states he has experienced difficulty maintaining friendships and states that a few of his friends . Patient Strengths Patient is intellectual, insightful and seeking help, patient has a food and beverage service manager he has been seeing. Current Behavioral Patient's psychiatrist is TY Gamez at [facility] Provider(s) Therapy (Ph. [phone]) Include Facility, Provider, Ph. # Psych. Hx Mental Patient endorses hx of Anxiety, Depression, SI and Health and Chemical Panic attacks. Dependency Patient denies any substance use or ETOH use. Family Hx of Patient endorses pressures of being help to a specific Behavioral Abuse cultural standard by his family. Psychiatric No hx. Hospitalizations ( date(s)/location) Psychosocial Patient is a 44 y/o male who resides in [facility]. Patient states he recently his spouse and Support Systems they share a 3 y/o son. Patient endorses very limited supports and friends. School/Work Patient endorses that he works at [employer]. Legal Matters - None reported Outstanding Issues Orientation (Person/ A/Ox Place/Time) Stated Mood it's all complicated Affect (Congruent euthymic, tearful at times, congruent with mood with Mood?) Thought Content - Patient denies visual or auditory hallucinations. Specify/Describe Patient endorses that he experienced fear of Obsessions, retaliation from coworkers and set up several cameras Delusions, around his property to protect the safety of his family Hallucinations . Thought Processes ( coherent Logical-Coherent- Goal Directed- Detailed-Tangential- Circumstantial- Logical-Disorganized -Thought Blocking) Speech (Normal-Slow- soft, normal [id number]- Loud-Pressured) Motor (Normal- normal, patient laying down with eyes closed [id number] ) Insight (Good-Fair- good Poor/Limited) Judgement (Good-Fair good -Poor/Limited) Impulse Control ( adequate Adequate-Impaired) Memory (Immediate- intact, not formally assessed Recent-Remote, Impaired-Intact) Concentration ( intact Intact-Impaired) Attention (Intact- intact Impaired) Behavior ( appropriate Appropriate- Inappropriate) Additional Comment Patient presents as calm, cooperative and communicative . Patient presents as very open sharing in great detail the timeline of compounding events. Suicidal Ideation ( Yes Plan) Homicidal Ideation ( No Plan) Comment Patient endorses he has been experiencing SI in recent months and it has built up over time. Patient states he tried to subside these thoughts when he thought of his son and states he did not want his son to find him. Patient endorses he made a [place] to see a beautiful sunrise one last time and proceeded to overdose on several medications in his car in attempt to kill himself. Intervention BACK OFFICE MEDICAL ASSISTANT enters room to meet with patient. Patient discusses in great detail several compounding life stressors impacting his mental health, patient felt as though he was unable to share his stressors with his family and has been experiencing SI in recent months leading to his suicide attempt earlier today. Patient endorses he is voluntary for Inpatient treatment, seeking to be placed in [facility] where he lives. EMS reports that patient's car is still at [place]. It is the opinion of this BACK OFFICE MEDICAL ASSISTANT that patient is appropriate for and will benefit from voluntary inpatient hospitalization for safety, crisis stabilization and medication management. BACK OFFICE MEDICAL ASSISTANT reviews this with ED provider Dr. Haile who indicates agreement and understanding. It is reported that patient is medically cleared. RA Plan BACK OFFICE MEDICAL ASSISTANT to seek voluntary inpatient bed. TAL Galeana
[2024-12-31 12:10] LABS: COVID19 -Nasal RAPID Negative (Negative)
--- NOTE | 2024-12-31 12:16 | PC.NURSE ---
Pt now on Q15 minute checks per Brianda PAYNE,Dr Haile in agreement with that
--- NOTE | 2024-12-31 13:11 | CM.SWNOTE ---
ED ENVIRONMENTAL PROPERTY ASSESSOR Note ENVIRONMENTAL PROPERTY ASSESSOR calls [facility], it is reported that their unit has beds, ENVIRONMENTAL PROPERTY ASSESSOR faxes clinicals for review. Hernandez at [facility] calls to request phone screening with patient, she indicates to patient that patient is accepted. ENVIRONMENTAL PROPERTY ASSESSOR calls Hernandez at [facility] at it is reported that patient is accepted at the [facility] by Dr. Jasen Rowe. Patient can arrive at 1600, RN to RN is [phone]. Hernandez states that she will fax ENVIRONMENTAL PROPERTY ASSESSOR calls [facility] and sets up transport for 1400 greens picker. ENVIRONMENTAL PROPERTY ASSESSOR informs patient who indicates agreement and understanding. Patient states he is coordinating with his family regarding picking up his car. Patient signs contract form for [facility] and ENVIRONMENTAL PROPERTY ASSESSOR faxes it to [facility]. Plan: patient to transport to [facility] via BLS this afternoon for voluntary inpatient hospitalization. Brianda Bird, AUTOMOTIVE REPAIR TECHNICIAN
== END 2024-12-31 14:25 ==
PROVIDERS: Emergency Medicine; Emergency Provider Emergency Medicine
DX: T14.91XA Suicide attempt, initial encounter (principal); T50.992A Poisoning by other drugs, medicaments and biological substances, intentional self-harm, initial encounter; F32.A Depression, unspecified
CPT/HCPCS: 36600; 80053; 80076; 80305; 80320; 80329; 82805; 82962; 83605; 85025; 85610; 87635; 93005; 96361; 96365; 96366; 99285; G0480